=== PATIENT | female | born 1995 | race Caucasian/White ===

== ENCOUNTER 2019-06-02 10:20 | Emergency (ER) | payer OTHER, SELFPAY ==
[2019-06-02 10:39] VITALS: BP 151/87; PULSE 81; RESP 16; TEMP 36.8; O2SAT 99
--- NOTE | 2019-06-02 10:54 | ED.URI ---
HPI - URI/Sore Throat General Chief Complaint: Upper Respiratory Infection Stated Complaint: sore throat Time Seen by Provider: 06/02/19 10:54 Source: patient and RN notes reviewed Mode of arrival: ambulatory Limitations: no limitations History of Present Illness HPI Narrative: This is a 24 years old female presented office for evaluation of sore throat for a couple day. Associated with sinus congestions and ear pressure with low grade fever 99F. She tried one dose of Benadryl yesterday. She woke [facility] [place] [facility] Denies sick contact or potential contact with COVID person. Related Data Allergies Allergy/AdvReac Type Severity Reaction Status Date / Time amoxicillin Allergy Mild Swelling Verified 06/02/19 10:54 of Lip/Tongue/Throat codeine Allergy Mild Swelling Verified 06/02/19 10:54 of Lip/Tongue/Throat latex Allergy Mild Hives Verified 06/02/19 10:54 Penicillins Allergy Mild Swelling Verified 06/02/19 10:54 of Lip/Tongue/Throat pseudoephedrine Allergy Mild Swelling Verified 06/02/19 10:54 of Lip/Tongue/Throat PSEUDOEPHEDRINE HCL Allergy Mild FACIAL Uncoded 04/22/13 19:22 SWELLING BEE STINGS Allergy Swelling Uncoded 06/02/19 10:54 of Lip/Tongue/Throat GUARDASIL Allergy Swelling Uncoded 06/02/19 10:54 of Lip/Tongue/Throat PLASTIC TAPE Allergy Hives Uncoded 06/02/19 10:54 Review of Systems Review of Systems: Narrative: CONSTITUTIONAL: Denies chills or bodyache ENT: Reports stuffy nose, congestion, sore throat, otalgia. CARDIOVASCULAR: Denies chest pain RESPIRATORY: Denies dyspnea, wheezing. Reports cough GASTROINTESTINAL: Denies abdominal pain, nausea, vomiting GENITOURINARY: Denies urinary symptoms SKIN: Denies rash MUSCULOSKELETAL: Denies acute back pain NEUROLOGIC: Denies lightheaded PMFSH Past Medical History Medical History (Updated 06/02/19 @ 11:15 by AMEENA Adams) No significant past medical history Comments At time of signature, I agree with nursing past medical, surgical, social and family history. There is no relevant family history pertinent to the presenting complaint. Exam Narrative: Exam Narrative: GENERAL: This is a well-nourished, well-developed patient, in no apparent distress. EYES: Sclera clear/white. Vision is grossly intact. EARS: External ears normal, auditory canals clear and without drainage, TMs normal without perforation. Hearing grossly intact. NOSE: External nose normal with no obvious nasal discharge, nares without redness, no rhinorrhea. THROAT: Mucous membranes moist, posterior pharynx clear. NECK: Neck supple, non-tender without lymphadenopathy, masses or thyromegaly. CARDIOVASCULAR: Regular rate and rhythm without murmurs, gallops, or rubs. RESPIRATORY: Clear to auscultation. Breath sounds equal bilaterally. No wheezes, rales, or rhonchi. GASTROINTESTINAL: Abdomen soft, non-tender, nondistended. Bowel sounds are active. No hepato-splenomegaly, or palpable masses. No guarding. SKIN: warm, intact with no suspicious lesions or rash, good texture and turgor. NEURO: awake, alert, and oriented to person, place and time. There were no obvious focal neurologic abnormalities. Steady gait [place] Coma Scale Eye Opening: Spontaneous 4 [place] Coma Scale Motor: Obeys Commands 6 [place] Coma Scale Verbal: Oriented 5 Course Vital Signs Vital signs: Vital Signs Temperature 98.2 F 06/02/19 10:39 Pulse Rate 81 06/02/19 10:39 Respiratory Rate 16 06/02/19 10:39 Blood Pressure 151/87 H 06/02/19 10:39 Pulse Oximetry 99 06/02/19 10:39 Temperature 98.2 F 06/02/19 10:39 Pulse Rate 81 06/02/19 10:39 Respiratory Rate 16 06/02/19 10:39 Blood Pressure 151/87 H 06/02/19 10:39 Pulse Oximetry 99 06/02/19 10:39 MDM - URI/Sore Throat MDM Narrative Medical decision making narrative: Discharge instructions reviewed with patient, as well as provided in writing per nursing staff. The ins
== END 2019-06-02 11:07 | disposition home or self-care (01) ==
PROVIDERS: Emergency Provider Nurse Practitioner; PCP Family Medicine
DX: J02.9 Acute pharyngitis, unspecified (principal)
CPT/HCPCS: 87081; 87880; 99213; G0463

== ENCOUNTER 2020-08-08 12:57 | Emergency (ER) | payer OTHER, SELFPAY ==
[2020-08-08 13:38] VITALS: BP 127/88; PULSE 74; RESP 16; TEMP 36; O2SAT 100
--- NOTE | 2020-08-08 13:47 | ED.URI ---
HPI - URI/Sore Throat General Chief Complaint: Upper Respiratory Infection Stated Complaint: SORE THROAT Source: patient and RN notes reviewed Limitations: no limitations History of Present Illness HPI Narrative: The patient, non-smoker/nondrinker cafe or restaurant manager, presents with sore throat. She notes a shorter 2-day history of sore throat without fever, cough, earache, vomiting/diarrhea, rash. Symptoms are mild worse with eating Related Data Home Medications Medication Instructions Recorded Confirmed drospirenone (contraceptive) 08/08/20 [Slynd] hydrochlorothiazide 08/08/20 losartan 08/08/20 Allergies Allergy/AdvReac Type Severity Reaction Status Date / Time amoxicillin Allergy Mild Swelling Verified 06/02/19 10:54 of Lip/Tongue/Throat codeine Allergy Mild Swelling Verified 06/02/19 10:54 of Lip/Tongue/Throat latex Allergy Mild Hives Verified 06/02/19 10:54 Penicillins Allergy Mild Swelling Verified 06/02/19 10:54 of Lip/Tongue/Throat pseudoephedrine Allergy Mild Swelling Verified 06/02/19 10:54 of Lip/Tongue/Throat PSEUDOEPHEDRINE HCL Allergy Mild FACIAL Uncoded 04/22/13 19:22 SWELLING BEE STINGS Allergy Swelling Uncoded 06/02/19 10:54 of Lip/Tongue/Throat GUARDASIL Allergy Swelling Uncoded 06/02/19 10:54 of Lip/Tongue/Throat PLASTIC TAPE Allergy Hives Uncoded 06/02/19 10:54 Review of Systems Review of Systems: Narrative: General/Constitutional: No weight loss,fever Eyes: N0: Redness,discharge Ears/Nose/Throat: No: Epistaxis,ear discharge Respiratory: Denies: Hemoptysis Gastrointestinal: No Vomiting, Bleeding-rectal Skin: No Lumps, eruption Neurologic: No Focal Weakness,Sz Hematologic: Denies: Petechiae/Purpura Psychiatric: No: Suicida ideationl All Other Systems: Reviewed and Negative PMFSH Past Medical History Medical History (Updated 08/08/20 @ 13:49 by Lawrence Gonzalez MD) No significant past medical history Comments At time of signature, agree with nursing past medical, surgical, social and family history. There is no relevant family history pertinent to the presenting complaint Exam Narrative: Exam Narrative: General Appearance: Well appearing, Well nourished EYE: PERRLA, Conjunctiva clear Ears: Auditory canal normal, TM normal Nose: Rhinorrhea, Mucousal erythema Mouth/Throat: MM moist, Uvula midline, Pharyngeal erythema Neck: Supple, No adenopathy Respiratory: No respiratory distress, Breath sounds equal, Clear to auscultation Cardiovascular: RRR, No JVD Musculoskeletal: Non tender, Normal strength Skin: Warm, Dry Neurological: A&O x3, CN II-XII intact Psychiatric: Normal mood, Normal affect Course Vital Signs Vital signs: Vital Signs Temperature 96.8 F L 08/08/20 13:38 Pulse Rate 74 08/08/20 13:38 Respiratory Rate 16 08/08/20 13:38 Blood Pressure 127/88 08/08/20 13:38 Pulse Oximetry 100 08/08/20 13:38 Temperature 96.8 F L 08/08/20 13:38 Pulse Rate 74 08/08/20 13:38 Respiratory Rate 16 08/08/20 13:38 Blood Pressure 127/88 08/08/20 13:38 Pulse Oximetry 100 08/08/20 13:38 Discharge Plan Discharge Clinical Impression: Upper respiratory infection Qualifiers: URI type: unspecified URI Qualified Code(s): J06.9 - Acute upper respiratory infection, unspecified Patient Disposition: Home, Self-Care Condition: Stable Instructions: Pharyngitis (ED) Prescriptions: New azelastine 137 mcg (0.1 %) aerosol,spray 137 mcg NASAL Q12H Qty: 30 RF: 0 azithromycin 250 mg tablet See Rx Instructions .ROUTE .COMPLEX Qty: 6 RF: 0 lidocaine HCl [Lidocaine Viscous] 2 % solution 5 ml MUCOUS MEM QID PRN (Reason: pain) Qty: 100 RF: 0 No Action losartan 25 mg tablet RF: 0 hydrochlorothiazide 12.5 mg tablet RF: 0 Slynd 4 mg (28) tablet RF: 0 Follow-up/Referrals: Tiffani,Kay Valencia MD [Primary Care P
== END 2020-08-08 13:53 | disposition home or self-care (01) ==
PROVIDERS: Emergency Provider Emergency Medicine; PCP Family Medicine
DX: J06.9 Acute upper respiratory infection, unspecified (principal); I10 Essential (primary) hypertension
CPT/HCPCS: 99213; G0463

== ENCOUNTER 2025-01-30 11:59 | Emergency (ER) | payer BC, SELFPAY ==
--- OUTSIDE RECORDS SUMMARY | 2024-07-29 04:32 | XMS_ITS | Continuity of Care Document ---
Author Organization [facility] nters Address [address] [place] [address] Phone Care Team Providers Care Platform Material Handler Manager Name Role Phone Chris Missy BARCENAS Unavailable Unavailable Allergies, Adverse Reactions, Alerts Substance Reaction Status Criticality Penicillins Active No Information latex Active No Information codeine Active No Information POTASSIUM CLAVULANATE Active No Inf ormation AMOXICILLIN TRIHYDRATE Active No In formation Medications Medication Instructions Dosage Effective Dates (start - stop) Status Comments No Drug Therapy Prescribed Procedures Procedure Date OV EST MODERATE PREVENTIVE NEW 18 TO 39 YRS OLD 025 Advance Directives Directive Yes / No Effective Date File Name No Information Encounters Encounter Description Practice Location Reason(s) For Visit Diagnoses Date Provider Providers Copied on Encounter [facility], [address], [place], [place], [id number], [place] tel: [phone] [facility] No Information 5 Chris Missy. [employer], [id number], [place], [place], [id number] , [place]. tel: [phone] OV EST MODERATE [facility], [address], [place], [place], [id number], [place] tel: [phone] [facility] Health Maintenance (chief complaint) Trying to get 5 Chris Missy. [address], [id number], [place], [place], [id number] , [place]. tel: [phone] PREVENTIVE NEW 18 TO 39 YRS OLD [facility], [address], [place], [place], [id number], [place] tel:[phone] [facility] annual exam (chief complaint) Encounter for gynecological examination (general) (routine) without abnormal findingsTrying to get Encounter for screening pap smear for Ca of cervixHistory of miscarriage 5 Jared Fernandez. [address] [place] [address], [id number], [place], [place], [id number] , [place]. tel: [phone] Family History Family Member Type Diagnosis Age At Onset Mother Problem (finding) Asthma Mother Problem (finding) Stroke Maternal grandfather Problem Diabetes mellitus Maternal grandmother Problem heart disease Maternal grandmother Problem Hypertension Maternal grandmother Problem kidney failure Sister Problem (finding) Asthma Maternal grandmother Problem arthritis Maternal grandmother Problem Diabetes mellitus Mother Problem (finding) Arthritis Brother Problem (finding) Asthma Mother Problem (finding) Blindness Maternal grandmother Problem stroke Mother Problem (finding) Stroke Mother Problem (finding) Diabetes mellitus Mother Problem (finding) Arthritis Mother Problem (finding) Hypertension Mother Problem (finding) Renal disease Mother Problem (finding) Cardiovascular disease Payers Payer name Insurance type Covered republican ID Authoriza tion(s) No Information Social History Type Description Quantity Date Captured Comments Sex Female Smoking Status No Information Gender Identity Female Chief Complaint And Reason For Visit No Information Reason For Referral Reason For Referral No Information Plan Of Treatment Date Type Action Status Goal Dental Exam. Due on 025 due Goal HIV Ab. Due on d ue Goal Unhealthy drug use screening . Due on due Goal Hepatitis C screening. Due o n due Goal BMP. Due on due Goal Pap Smear. Due on due Goal PHQ-9. Due on du e Goal Pap/HPV testing. Due on due Goal Hepatitis C screening. Due o n due Goal HIV Ab. Due on d ue Goal Dental Exam. Due on 025 due Goal BMP. Due on due Goal Pap Smear. Due on 5 due Goal Unhealthy drug use screening . Due on due Goal PHQ-9. Due on du e History Of Present Illness Encounter Date Complaint History Of Prese nt Illness Health Maintenance Trying to get (Z78.9).sine 07/2023; had SAB 12/2023, doing well and cycles have returnedd/w pt cycle tracking, OPKs, and encouraged vitamin-partner SA -f/u in 3mo if not will order further testingEncounter for screening pap smear for Ca of cervix (Z12.4).IGP, Aptima HPV, rfx 16/18,45 to be performed.History of miscarriage (Z87.59).12/2023- chemical pregQuit control July 2023had late period was positiveThen bled so likely early miscarriage all: pencillin/amoxi/sudafed/codeineMeds: kandy, PNVPMHX: noSHX: adenoids/tubesFhx: grandma heard dz/kidney dz/dm/stroke, mom had cervical cancerNo breast/ovarian/cacnerSochx: rarely drinksOB hx: chemcical pregnancyGyne hx menses Mar/ no period in April/ wk of May, wk of Junemenses every 50-60days then every 38 dayslast pap in systemlast mmg n/asexually active 3-4x week tracking menses/ovulationTold to take OPKs daily? was very stressfulTracking OPK since ly believe had a positive OPK in Aprilcontraception was on OCPSmenses prior control was regularmenarch 10 OCPS at 19 was getting migraines on estrogen containing pills22 - 26 slyndPartner any kids noHusband getting tests done todayTrying to lose weightstop soda gym membershipTrying to improve diet annual exam Currently pregna nt: no. : 1. spontaneous: 1. The client states using none for control. Last LMP was 02/18/2024. Patient's menses is regular with normal flow with a frequency of every 28 days. Negative for dysmenorrhea and menorrhagia. Negative for: breast discharge, breast lump(s), breast pain and breast self exam.Negative for Hormone replacement therapy. Menopausal symptoms negative for: hot flashes, insomnia, night sweats and vaginal dryness. Client does not take calcium. Client does not take Vitamin D. Client does not take multivitamins. Client does not take Folic acid.The client states Client's exercise frequency is never. The client does not use tobacco. The client has not been exposed to passive smoke. The client has not been exposed to passive vaping. The client does not drink alcohol. Additional information: [facility] 12/2023, currently ttc. Functional Status Date Functional Assessmen t No Information Medications Administered Medication Instructions Dosage Effective Dates (start - stop) Status Comments No Drug Therapy Prescribed Instructions Date Instruction Additional Infor mation No Information Assessments Type Assessment Date No Information Patient Care Teams Name Effective Dates (start - stop) Status Members No Information
[2025-01-30 12:03] VITALS: BP 143/88; PULSE 79; RESP 16; TEMP 36.6; O2SAT 99
--- NOTE | 2025-01-30 12:09 | PC.NURSE ---
Pt. has had htn during , on labetalol for it. Did not take medication this morning.
--- NOTE | 2025-01-30 16:00 | ED_ITS ---
HPI - Nausea/Vomiting/Diarrhea General Chief complaint: Nausea/Vomiting/Diarrhea Stated complaint: morning sickness, 10.5 weeks Time Seen by Provider: 01/30/25 15:45 Source: patient History of Present Illness HPI Narrative: This is a 29-year-old female approximately 10 weeks who presents to the ED for nausea and vomiting. Patient states that she has had some intermittent nausea and vomiting but this morning had an episode of orange emesis prompting her to come to the ED. She has had intermittent ?pinching? sensation to her suprapubic region that she saw her OBGYN for last week and was cleared. She follows with OBGYN and Diana and is visiting family for the week. Denies fevers, chills, chest pain, shortness of breath. Denies lightheadedness, dizziness. Related Data Home Medications ?Medication ?Instructions ?Recorded ?Confirmed ?Last Taken ?Type drospirenone (contraceptive) 4 mg 08/08/20 Unknown H istory (28) tablet (Slynd) hydrochlorothiazide 12.5 mg tablet 08/08/20 Unknown History losartan 25 mg tablet 08/08/20 Unknown History Allergies Allergy/AdvReac Type Severity Reaction Status Date / Time amoxicillin Allergy Mild Swelling Verified 01/30/25 12:01 of Lip/Tongue/Throat codeine Allergy Mild Swelling Verified 01/30/25 12:01 of Lip/Tongue/Throat latex Allergy Mild Hives Verified 01/30/25 12:01 Penicillins Allergy Mild Swelling Verified 01/30/25 12:01 of Lip/Tongue/Throat pseudoephedrine Allergy Mild Swelling Verified 01/30/25 12:01 of Lip/Tongue/Throat PSEUDOEPHEDRINE HCL Allergy Mild FACIAL Uncoded 04/22/13 19:22 SWELLING BEE STINGS Allergy Swelling Uncoded 06/02/19 10:54 of Lip/Tongue/Throat GUARDASIL Allergy Swelling Uncoded 06/02/19 10:54 of Lip/Tongue/Throat PLASTIC TAPE Allergy Hives Uncoded 06/02/19 10:54 Review of Systems 2 Review of Systems: All systems reviewed & are unremarkable except as noted in HPI and below PMFSH Past Medical History Medical History No significant past medical history Exam 2 Narrative: APPEARANCE: No acute distress, nontoxic, resting in bed EYES: EOMI HEENT: Normocephalic, atraumatic, OMM RESPIRATORY: No respiratory distress Clear to auscultation bilaterally with no rhonchi wheezing or rales. CARDIOVASCULAR: Regular rate and rhythm without murmurs rubs or gallops. ABDOMINAL: Soft, nontender, nondistended, no rebound or guarding MUSCULOSKELETAl: Moves all extremities. No clubbing, cyanosis or edema. NEURO: Awake and alert. Following commands, speech normal, no focal deficits SKIN:: Warm, dry. No rashes lesions or abrasions PSYCHIATRIC: Normal affect/mood, Course Vital Signs Vital signs: Vital Signs Temperature 97.9 F 01/30/25 12:03 Pulse Rate 79 01/30/25 12:03 Respiratory Rate 16 01/30/25 12:03 Blood Pressure 143/88 H 01/30/25 12:03 Pulse Oximetry 99 01/30/25 12:03 Oxygen Delivery Room Air 01/30/25 12:03 Temperature 98.2 F 01/30/25 18:15 Pulse Rate 76 01/30/25 18:15 Respiratory Rate 18 01/30/25 18:15 Blood Pressure 125/71 01/30/25 18:15 Pulse Oximetry 100 01/30/25 18:15 Oxygen Delivery Room Air 01/30/25 12:03 [facility] MDM Narrative Medical decision making narrative: 29-year-old female Presenting for nausea, vomiting. On initial evaluation patient was in no acute distress afebrile, hemodynamic stable. Differentials include but are not limited to: Hyperemesis gravidarum, electrolyte abnormality, gastroenteritis, gastritis Notable exam findings: Abdomen soft and nontender, mucus membranes pink and moist. I personally reviewed the patient's lab result. Notable lab findings: Mild leukocytosis at 10.7, CMP without significant abnormalities. UA likely consistent with some dehydration and possible asymptomatic bacteriuria. COVID/flu/RSV negative. Patient was given 1 L NS bolus. She was given cephalexin for the UTI. She was given a prescription for cephalexin. She was advised to take her Phenergan at home as prescribed. She was advised follow-up with her OBGYN next week for re- evaluation. Patient was agreeable to this plan. Given strict return precautions. Differential Diagnosis Differential Diagnosis: Hyperemesis gravidarum, electrolyte abnormality, gastroenteritis, gastritis Lab Data 01/30/25 16:49 01/30/25 16:49 Labs: Lab Results 01/30/25 01/30/25 01/30/25 Range/Units 16:13 16:44 16:49 WBC 10.7 H (4.5-10.0) K/mm3 RBC 4.67 (4.2-5.4) M/mm3 Hgb 13.6 (12.0-15.0) g/dL Hct 40.4 (37.0-47.0) % MCV 86.5 (80-100) fl MCH 29.1 (26-34) pg MCHC 33.7 (32-36) g/dl RDW 12.5 (11.5-14.5) % Plt Count 293 (150-375) k/mm3 MPV 10.1 (7.4-10.4) fl Immature Gran % (Auto) 0.4 (0-0.5) % Neut % (Auto) 69.4 (45.5-73.1) % Lymph % (Auto) 22.3 (18.3-44.2) % [place] % (Auto) 6.1 (2.6-8.5) % Eos % (Auto) 1.3 (0-4.4) % Baso % (Auto) 0.5 (0.2-1.2) % Lymph # (Auto) 2.40 (0.9-3.2) K/mm3 [place] # (Auto) 0.7 H (0.1-0.6) K/mm3 Eos # (Auto) 0.1 (0-0.3) K/mm3 Baso # (Auto) 0.1 (0.0-0.1) K/mm3 Abs Immat Gran (auto) 0.04 H (0.00-0.031) K/mm3 Absolute Neuts (auto) 7.5 H (1.3-6.7) K/mm3 Absolute Nucleated RBC 0.000 (0.0-0.012) K/mm3 Nucleated RBC % 0.0 (0.0-0.2) % Sodium 135 L (137-145) mmol/L Potassium 3.6 (3.4-5.0) mmol/L Chloride 104 (98-107) mmol/L Carbon Dioxide 23 (22-30) mmol/L Anion Gap 8 (4-12) mmol/L BUN 5 L (7-17) mg/dL Creatinine 0.59 L (0.7-1.0) mg/dL Estim Creat Clear Calc 141 ml/min Estimated GFR > 60 (59 - ) Glucose 83 (65-110) mg/dL Calcium 9.3 (8.4-10.2) mg/dL Total Bilirubin 0.5 (0.2-1.3) mg/dL AST 23 (14-36) U/L ALT 23 (6-35) U/L Alkaline Phosphatase 86 (38-126) U/L Total Protein 7.6 (6.3-8.2) g/dL Albumin 4.1 (3.5-5.1) g/dL Urine Color Dark yellow (Yellow) Urine Appearance Cloudy H (Clear) Urine pH 6.0 (5.0-9.0) Ur Specific [place] 1.025 (1.001-1.035) Urine Protein Trace (Negative) mg/dL Urine Glucose (UA) Negative (Negative) mg/dL Urine Ketones 1+ H (Negative) mg/dL Ur Blood (Man) Negative (Negative) Urine Nitrate Negative (Negative) Urine Bilirubin Negative (Negative) Urine Urobilinogen 0.2 (<2.0) mg/dL Add Ur Microanalysis Reviewed Leukocyte Esterase Rfl 1+ H (Negative) ANNAMARIA/UL Urine RBC 11-20 H (0-2) /hpf Urine WBC 21-50 H (0-3) /hpf Ur Squamous Epith Cells Few (Few) /hpf Urine Bacteria Rare /hpf Urine Casts 11-20 Influenza A (RT-PCR) Negative (Negative) Influenza B (RT-PCR) Negative (Negative) RSV (RT-PCR) Negative (Negative) SARS-CoV-2 RNA (RT-PCR) Negative (Negative) Discharge Plan Discharge Clinical Impression: Nausea and vomiting during , Asymptomatic bacteriuria Patient Disposition: Home Condition: Stable Instructions: Antibiotic Form, Nausea and Vomiting in (ED) Additional Instructions: Take your Phenergan as previously prescribed. Take Keflex as prescribed for the UTI. Follow-up with your Telecommunications Technician in the next week for re-evaluation. Return to the ED for any new worsening symptoms. Patient Language: Pashto Prescriptions: New cephalexin 500 mg capsule 500 mg PO Q12H Qty: 9 0RF No Action losartan 25 mg tablet hydrochlorothiazide 12.5 mg tablet Slynd 4 mg (28) tablet azelastine 137 mcg (0.1 %) aerosol,spray 137 mcg NASAL Q12H Qty: 30 0RF Rx Instructions: administer into each nostril azithromycin 250 mg tablet See Rx Instructions .ROUTE .COMPLEX Qty: 6 0RF Rx Instructions: take 500 mg today (day 1), then 250 mg for 4 days (days 2-5) lidocaine HCl [Lidocaine Viscous] 2 % solution 5 ml MUCOUS MEM QID PRN (Reason: pain) Qty: 100 0RF Rx Instructions: Gargle and spit Follow-up/Referrals: PHYSICIAN NOT ON STAFF,NONSTAFF [Primary Care Provider]
--- OUTSIDE RECORDS SUMMARY | 2025-01-30 16:28 | XMS_ITS | Encounter Summary ---
Author Organization [facility] Address [address] [place] [address] Phone Care Team Providers Care Head Track Coach Name Role Phone Gail García NP Primary Care Provider [phone] Encounter Details Date Type Department Care Team ([facility] st Contact Info) Description 01/23/2025 Results Follow-Up [facility] [address] [place] [address] Marion Tomas NP [address] [place], [place] [phone] VAGINAL PANEL BY PCR Social History Smoking Status as of 01/21/2025 Tobacco Use Types Packs/Day Years Used Date Smoking Tobacco: Never Smokeless Tobacco: Never Tobacco Cessation:Counseling Given: Not Answered Alcohol Use as of 01/21/2025 Alcohol Use Standard Drinks/Week Comments Yes 0 (1 standard drink = 0.6 oz pur e alcohol) rarely PHQ-2 Answer Date Recorded Depression Risk (PHQ2 Score) Score 0-2 = Not likely to be at risk for depression, Score 3-6 = At risk for depression 0 08/05/2024 Exercise Vital Sign Answer Date Recorde d On average, how many days pe r week do you engage in moderate to strenuous exercise (like a brisk walk)? 3 days Minutes of Exercise per Session Not on file 08/05/2024 PHQ-9 Answer Date Recorded PHQ-9 Total Score > 1-4 Mini mal, 5-9 Mild, 10-14 Moderate, 15-19 Mod-Severe, 20-27 Severe 8 08/05/2024 AUDIT-C Answer Date Recorded Q1: How often do you have a drink containing alc ohol? Never 12/26/2024 Average Number of Drinks Not on file 025 Frequency of Binge Drinking Not on file 12/07 Comments Yes Sex and Gender Information Value Date Recorded Sex Assigned at Not on file Legal Sex Female 2:31 AM EDT Gender Identity Not on file Sexual Orientation Not on file documented as of this encounter Progress Notes * Gail Maria MA - 01/26/2025 7:23 AM CST Lenora sent mychart documented in this encounter Plan of Treatment Upcoming Encounters Date Type Department Care Team (Late st Contact Info) Description 02/18/2025 10:00 AM FIRE INVESTIGATOR Initial [facility] Gyne[facility] [address] [place] [address] Marion Tomas NP [address] [place] [address] 04/10/2025 12:30 PM FIRE INVESTIGATOR Ancillary Procedure [facility] [place] [address] [place] [phone] 04/10/2025 12:30 PM FIRE INVESTIGATOR Office Visit [facility] [place] [address] [place] [address] [place] [address] [place] [address] 04/29/2025 2:00 PM CDT [facility] [address] [facility] [place] [address] Lpn Or Medical Assistant: Marti Vasques Jennifer, NP [address] [facility] [place] [address] documented as of this encounter Visit Diagnoses Not on filedocumented in this encounter Additional Health Concerns Assessment Noted Time PHQ-9 Depression Total Score: 8 08/06/19 25 12:23 PM EDT documented as of this encounter Care Teams Head Track Coach Relationship Specialty Start Date End Date Gail García NP [address] [facility] [place], [place] [phone] PCP - General Family Medicine 07/29/24 documented as of this encounter
--- OUTSIDE RECORDS SUMMARY | 2025-01-30 16:28 | XMS_ITS | Encounter Summary ---
Author Organization [facility] Address [address] [place] [address] Phone Care Team Providers Care Food Safety Auditor Name Role Phone Gail García NP Primary Care Provider [phone] Encounter Details Date Type Department Care Team (Late st Contact Info) Description 01/15/2025 Results Follow-Up [facility] Obstetrics & Gynecology [address] [place] [address] Marion Tomas NP [address] [facility] [address] [place] [address] < 14 WEEKS AND TRANSVAGINAL Social History Smoking Status as of 12/26/2024 Tobacco Use Types Packs/Day Years Used Date Smoking Tobacco: Never Smokeless Tobacco: Never Tobacco Cessation:Counseling Given: Not Answered Alcohol Use as of 12/26/2024 Alcohol Use Standard Drinks/Week Comments Yes 0 [...] on file documented as of this encounter Plan of Treatment Upcoming Encounters Date Type Department Care Team (Late st Contact Info) Description 02/18/2025 10:00 AM COLOR TECHNICIAN Initial [facility] Ob[facility]etrics & Gynecology [address] [place] [phone] Marion Tomas NP [address] [place] [address] 04/10/2025 12:30 PM COLOR TECHNICIAN Ancillary Procedure [facility] [place] [address] [place] [address] 04/10/2025 12:30 PM COLOR TECHNICIAN Office Visit [facility] Medicine [facility] [place] [address] [place] [address] [place] [address] [address] [place] [address] 04/29/2025 2:00 PM CDT Office Visit [facility] Family Medicine [address] [place] [address] [address] [employer] Principal: Marti Vasques Jennifer, NP [address] [place] [address] documented as of this encounter Visit Diagnoses Not on filedocumented in this encounter Additional Health Concerns Assessment Noted Time PHQ-9 Depression Total Score: 8 08/06/19 12:23 PM EDT documented as of this encounter Care Teams Food Safety Auditor Relationship Specialty Start Date End Date Gail García NP [address] [place] [address] PCP - General Family Medicine 07/29/24 documented as of this encounter
--- OUTSIDE RECORDS SUMMARY | 2025-01-30 16:28 | XMS_ITS | Clinical Summary ---
Author Organization [facility] Address [address] [place] [address] Care Team Providers Care Front End Manager Name Role Phone Gail García NP Primary Care Provider [phone] Allergies Active Allergy Reactions Criticality Noted Date Comments Adhesive Tape-Silicones Hives,Swelling High 05/18/19 Amoxicillin Hives,Swelling High 05/18/2023 Codeine Hives,Swelling High 05/18/2023 Latex Hives,Swelling High 05/18/2023 Penicillin Hives,Swelling High 05/18/2023 Sudafed Cough Hives,Swelling High 05/18/2023 Medications PNV no.95/ferrous fum/folic ac ( PO) Take by mouth Ac tive cholecalcifero l, vitamin D3, (VITAMIN D3 PO) Take by mouth Active Miscellaneous Medical Supply misc Pt needs blood pressure monitor for self monitoring for HTN 1 Each 5 Active metFORMIN (GLUCOPHAGE-XR ) 500 mg XR tablet Take 1 (one) Tablet by mouth daily 90 Tablet 1 5 Active Additional Information Patient not taking.Reported on 01/21/2025 Progesterone Micronized [address] 200 mg vaginally nightly for 60 doses 60 Each 5 02/27/19 26 Active Additional Information Patient not taking.Reported on 01/21/2025 progesterone micronized (PROMETRIUM) 100 mg capsule Take 2 (two) Capsules by mouth every evening Please insert 2(two) capsules into the vagina every evening 60 Capsule 5 Active Additional Information Patient not taking.Reported on 01/21/2025 Doxylamine Succinate (UNISOM, DOXYLAMINE,) 25 mg tab Take 1 (one) Tablet by mouth daily 30 Tablet 1 5 Active promethazine (PHENERGAN) 12.5 mg tablet Take 1 (one) Tablet by mouth every 6 (six) hours as needed for Nausea 30 Tablet 5 Active pyridoxine, vitamin B6, (VITAMIN B-6) 25 mg tab Take 1 tablet by mouth three times daily 90 Tablet 1 5 Active labetalol (NORMODYNE) 100 mg tablet Take 1 (one) Tablet by mouth 2 (two) times daily 60 Tablet 11 5 Active labetaloL (NORMODYNE) 100 mg tablet Take 1 (one) Tablet by mouth 2 (two) times daily 60 Tablet 11 5 01/22/20 25 Discontin ued(Reord er) Active Problems Comments Yes No known active problems Encounters Date Type Department Care Team Description 01/23/2025 Results Follow-Up [facility] Physician [place] [address] [address] Marion Tomas NP VAGINAL PANEL BY PCR 01/21/2025 11:30 AM MACHINE MAINTENANCE MECHANIC Office Visit [facility] Physician [facility] Obstetrics & Gynecology [address] [place] [address] [place] [address] Marion Tomas NP Encounter for confirmation of test result with physical examination (Primary Dx); Vaginal discharge; Nausea and vomiting during ; Chronic hypertension 01/21/2025 Travel 01/16/2025 Telephone [facility] Marion Tomas NP Scheduling 01/15/2025 9:46 AM MACHINE MAINTENANCE MECHANIC - 01/15/2025 11:59 PM MACHINE MAINTENANCE MECHANIC Hospital Encounter [facility] Ultrasound [address] [place] [address] Marion Tomas NP Amenorrhea Discharge Disposition: Home or Self Care 01/15/2025 Results Follow-Up [facility] Obstetrics & Gynecology [address] [place] [address] Marion Tomas NP US < 14 WEEKS AND TRANSVAGINAL 12/29/2024 Orders Only [facility] Obstetrics & Gynecology [address] [place] [address] Marion Tomas NP 12/26/2024 2:05 PM MACHINE MAINTENANCE MECHANIC - 12/26/2024 11:59 PM MACHINE MAINTENANCE MECHANIC Hospital Encounter [facility] [address] [place] [address] Marion Tomas NP Chronic hypertension; Amenorrhea Discharge Disposition: Home or Self Care 12/26/2024 11:30 AM MACHINE MAINTENANCE MECHANIC Office Visit [facility] [address] [place] [address] Marion Tomas NP Amenorrhea (Primary Dx); Chronic hypertension 12/26/2024 Results Follow-Up [facility] [address] [place] [address] Marion Tomas NP Protein Creatinine Ratio Urine Random, Human chorionic gonadotropin (hCG), quantitative, PROGESTERONE, CT,NG BY PCR 12/23/2024 2:58 PM MACHINE MAINTENANCE MECHANIC - 12/23/2024 5:28 PM MACHINE MAINTENANCE MECHANIC Emergency [facility] Emergency Dept [address] [place] [address] Bereket Spencer MD Donahue, Charity, CRYPTOLOGIC TECHNICIAN TECHNICAL Hypertension in (Primary Dx); UTI in Discharge Disposition: Home or Self Care 12/23/2024 Telephone [facility] Family Medicine [address] [facility] [address] Bottling Attendant: Marti Vasques Jennifer, NP Advice Only from Last 3 Months Family History Medical History Relation Name Comments Diabetes Maternal grandmother Hypertension Maternal grandmother Kidney failure Maternal grandmother No Known Problems Natural father Cervical cancer Natural mother Hypertension Natural mother Psychosis Natural sister borderline Relation Name Status Comments Maternal grandmother Natural father Natural mother Natural sister Social History Tobacco Use Types Packs/Day Years Used Date Smoking Tobacco: Never Smokeless Tobacco: Never Tobacco Cessation:Counseling Given: Not Answered Alcohol Use Standard Drinks/Week Comments Yes 0 [...] on file Sexual Orientation Not on file Last Filed Vital Signs Vital Sign Reading Time Taken Comments Blood Pressure 122/80 01/21/2025 11:40 AM MACHINE MAINTENANCE MECHANIC Pulse 87 12/23/2024 3:02 PM MACHINE MAINTENANCE MECHANIC Temperature 36.8 C (98.2 F) 12/23/2024 3:02 PM MACHINE MAINTENANCE MECHANIC Respiratory Rate 18 12/23/2024 3:02 PM MACHINE MAINTENANCE MECHANIC Oxygen Saturation 100% 12/23/2024 3:02 PM MACHINE MAINTENANCE MECHANIC Inhaled Oxygen Concentration - - Weight 106.9 kg (235 lb 11.2 oz) 2024 11:40 AM MACHINE MAINTENANCE MECHANIC Height 160 cm (5' 3) 01/21/2025 11:40 AM MACHINE MAINTENANCE MECHANIC Body Mass Index 41.75 01/21/2025 11:40 AM MACHINE MAINTENANCE MECHANIC Plan of Treatment Upcoming Encounters Date Type Department Care Team (Late st Contact Info) Description 02/18/2025 10:00 AM MACHINE MAINTENANCE MECHANIC Initial [facility] Obstetrics & Gynecology [address] [place] [address] Marion Tomas, FABY [address] [place] [address] 04/10/2025 12:30 PM MACHINE MAINTENANCE MECHANIC Ancillary Procedure [facility] Physician [facility] Maternal Medicine & Genetics [place] [address] [place] [address] 04/10/2025 12:30 PM MACHINE MAINTENANCE MECHANIC Office Visit [facility] Maternal Medicine & Genetics [place] [address] [place] [address] [place] [address] [address] [place] [address] 04/29/2025 2:00 PM CDT Office Visit [facility] Family Medicine [address] [place] [address] Bottling Attendant: Marti Vasques Jennifer, NP [address] [place] [address] Health Maintenance Due Date Last Done Comments HIV Screening 1997 Lab-Vitamin B12 1998 Hepatitis B Vaccination (1 o f 3 - 19+ 3-dose series) 2016 Cervical Cancer Screening 2018 Cotest (HPV/Pap) 2018 HPV 2018 Pap 2018 Tdap/Td Vaccination (1 - Tdap) 2018 HPV Vaccination (1 of 3 - 3- dose SCDM series) 2024 Lab-Lipid Screening 08/05/2024 Influenza Vaccination (#1) 2024 COVID-19 Vaccine (1 - 2024-2 6 season) 2024 Well Visit 02/27/2025 02/28/2024, 02/28/2024 BMI followup 08/05/2025 08/05/2024 Depression Screening 08/05/2025 08/05/2024 Lab-Creatinine 12/23/2025 12/23/2024, 01/05, 05/18/2023 Lab-Diabetes Screening (Gluc ose or HgA1c) 12/23/2025 12/23/2024, 01/19/2024, 05/18/2023 Lab-K (Potassium) 12/23/2025 12/23/2024, , 05/18/2023 Procedures Procedure Name Priority Date/Time Associated Diagnosis Comments VAGINAL PANEL BY PCR Routine 01/21/2025 1:58 PM MACHINE MAINTENANCE MECHANIC Vaginal discharge US < 14 WEEKS AND TRANSVAGINAL Routine 01/15/2025 10:55 AM MACHINE MAINTENANCE MECHANIC Amenorrhea PROGESTERONE Routine 12/26/2024 2:27 PM MACHINE MAINTENANCE MECHANIC Amenorrhea HCG QUANTITATIVE Routine 12/26/2024 2:27 PM MACHINE MAINTENANCE MECHANIC Amenorrhea PROTEIN CREATININE RATIO URINE RANDOM Routine 12/26/2024 2:27 PM MACHINE MAINTENANCE MECHANIC Chronic hypertension CT,NG BY PCR Routine 12/26/2024 Amenorrhea URINALYSIS WITH REFLEX MICROSCOPIC(NO REFLEX CULTURE) STAT 12/23/2024 4:02 PM MACHINE MAINTENANCE MECHANIC HC TROPONIN MALAIKA 411 STAT 12/23/2024 3:41 PM MACHINE MAINTENANCE MECHANIC COMPLETE BLOOD COUNT WITH AUTO DIFFERENTIAL STAT 12/23/2024 3:41 PM MACHINE MAINTENANCE MECHANIC HCG QUANTITATIVE STAT 12/23/2024 3:41 PM MACHINE MAINTENANCE MECHANIC MAGNESIUM STAT 12/23/2024 3:41 PM MACHINE MAINTENANCE MECHANIC COMPREHENSIVE METABOLIC PANEL STAT 12/23/2024 3:41 PM MACHINE MAINTENANCE MECHANIC COMPLETE BLOOD COUNT WITH DIFFERENTIAL STAT 12/23/2024 3:41 PM MACHINE MAINTENANCE MECHANIC from Last 3 Months Results * VAGINAL PANEL BY PCR (01/21/2025 1:58 PM MACHINE MAINTENANCE MECHANIC) BACTERIAL VAGINOSIS NOT DETECTED 01/23/2025 1:52 AM MACHINE MAINTENANCE MECHANIC [facility] Comment: Detection of Bacterial Vaginosis is based on a quantitative algorithm of the following bacteria; Lactobacillus species (L. crispatus and L. jensenii), Gardnerella vaginalis, Atopobium vaginae, Bacterial vaginosis associated bacteria-2 (BVAB-2), and Megasphaera-1. KENNY GROUP NOT DETECTED 01/23/2025 1:52 AM MACHINE MAINTENANCE MECHANIC [facility] Comment: Result includes detection of C. albicans, and/or C. tropicalis, and/or C. parapsilosis, and/or C. dubliniensis. KENNY GLABRATA NOT DETECTED 01/23/2025 1:52 AM MACHINE MAINTENANCE MECHANIC [facility] KENNY KRUSEI NOT DETECTED 01/23/2025 1:52 AM MACHINE MAINTENANCE MECHANIC [facility] TRICHOMONAS VAGINALIS NOT DETECTED 01/23/2025 1:52 AM MACHINE MAINTENANCE MECHANIC [facility] BKR-Swab VAGINAL STRUCTURE / Unknown 01/21/2025 1:58 PM MACHINE MAINTENANCE MECHANIC 01/22/2025 3:34 PM MACHINE MAINTENANCE MECHANIC Narrative [facility] - 01/23/2025 1:52 AM MACHINE MAINTENANCE MECHANIC Marion Tomas NP MICROBIOLOGY - GENERAL ORDERAB LES Final Result Performing Organization Address City/State/[facility] Co de Phone Number [facility] Associated Content [address] [phone] * US < 14 WEEKS AND TRANSVAGINAL (01/15/2025 10:55 AM MACHINE MAINTENANCE MECHANIC) Anatomical Region Laterality Modality Abdomen N/A Ultrasound 01/15/2025 9:46 AM MACHINE MAINTENANCE MECHANIC Impressions 01/15/2025 11:20 AM MACHINE MAINTENANCE MECHANIC Single live intrauterine gestation, size equal dates. Small subchorionic hematoma. Electronically signed by: Fede Yoo MD 01/15/2025 11:20 AM MACHINE MAINTENANCE MECHANIC If the referring physician has any questions about this report, please call . d: Jan 15 2025 11:20A f: Jan 15 2025 11:20A Narrative 01/15/2025 11:20 AM MACHINE MAINTENANCE MECHANIC CLINICAL HISTORY: US LESS THAN 14 WEEKS WITH TRANSVAGINAL N91.2- Amenorrhea COMPARISON: None available. TECHNIQUE: transabdominal and endovaginal sonography was performed FINDINGS: An intrauterine gestational sac is present. An embryo is identified .Cardiac activity is visualized and documented at a normal rate (160 beats per minute). There is a 1.6 x 0.8 x 0.5 cm subchorionic fluid collection. Based on a crown rump length averaging 16 mm, the estimated gestational age is 8 weeks and 1 day. Findings are compatible with gestational age by dates of 8 weeks and 3 days, based on LMP dated 11/17/2024. Estimated date of delivery by ultrasound is 08/26/2025. The right ovary measures 3.7 cm. The left ovary measures 3.8 cm. Probable 2 cm corpus luteal cyst There is no pelvic free fluid. Procedure Note Horacio Bermeo MD - 01/15/2025 CLINICAL HISTORY: US LESS THAN 14 WEEKS WITH [id number]- Amenorrhea COMPARISON: None available. TECHNIQUE: transabdominal and endovaginal sonography was performed FINDINGS: An intrauterine gestational sac is present. An embryo is identified.Cardiac activity is visualized and documented at a normal rate (160 beatsper minute). There is a 1.6 x 0.8 x 0.5 cm subchorionic fluidcollection. Based on a crown rump length averaging 16 mm, the estimated gestationalage is 8 weeks and 1 day. Findings are compatible with gestational age bydates of 8 weeks and 3 days, based on LMP dated 11/17/2024. Estimated date of delivery by ultrasound is 08/26/2025. The right ovary measures 3.7 cm. The left ovary measures 3.8 cm. Probable 2 cm corpus luteal cyst There is no pelvic free fluid. IMPRESSION: Single live intrauterine gestation, size equal dates. Small subchorionic hematoma. Electronically signed by: Fede Yoo MD 01/15/2025 11:20 AM CST If the referring physician has any questions about this report, pleasecall . d: Jan 15 2025 11:20A f: Jan 15 2025 11:20A us Marion Tomas CRYPTOLOGIC TECHNICIAN TECHNICAL IMG US ORDERABLES Final Result * Human chorionic gonadotropin (hCG), quantitative (12/26/2024 2:27 PM MACHINE MAINTENANCE MECHANIC) Only the most recent of2 resultswithin the time period is included. HCG, QUANT 4,478.5 mIU/mL 12/26/2024 3:54 PM MACHINE MAINTENANCE MECHANIC [facility] BKR-Blood Venipuncture / Unknown 12/26/2024 2:27 PM MACHINE MAINTENANCE MECHANIC 12/26/2024 2:59 PM MACHINE MAINTENANCE MECHANIC Narrative [facility][1] LAB - 12/26/2024 3:54 PM MACHINE MAINTENANCE MECHANIC Interpretation hcg Range (mIU/mL) Negative < 5 Indeterminate 5 - 25 Positive > 25 The method used to obtain results is standardized against the WHO 5th International Standard for Chorionic Gonadotropin. Estimation of Gestational Age Weeks from LMP BhCG level (mIU/mL) 3 Weeks 5 - 50 4 Weeks 5 - 426 5 Weeks 18 - 7340 6 Weeks 1080 - 98133 7-8 Weeks 7650 - 566971 9-12 Weeks 26709 - 878713 13-16 Weeks 38524 - 684261 17-24 Weeks 4060 - 839569 25-40 Weeks 3640 - 737574 The ranges in the table above have not been validated by the testing lab or assay food chemist, but are provided solely as an estimate of gestational age. BhCG levels can vary widely between women; therefore results should be used in conjunction with other methods (i.e. ultrasound, LMP) for determining gestational age. For assessment of gestational viability, serial testing is advised rather than a single measurement. Reference: http://americanpregnancy.org/while-/hcg-levels Marion Tomas NP LAB BLOOD ORDERABLES Final Res ult [facility] [address] [facility], [address] [phone] * PROGESTERONE (12/26/2024 2:27 PM MACHINE MAINTENANCE MECHANIC) Pathologist [facility] [place] PROGESTERONE 11.3 ng/mL 12/26/2024 7:46 PM MACHINE MAINTENANCE MECHANIC [place] Comment: REFERENCE RANGES Males: 0.14- 2.06 Females Mid Follicular: 0.31 - 1.52 Mid-Luteal: 5.16 - 18.56 Postmenopausal: <0.08 - 0.78 1st Tri: 4.73 - 50.74 2nd Tri: 19.41 - 45.30 BKR-Blood Venipuncture / Unknown 12/26/2024 2:27 PM MACHINE MAINTENANCE MECHANIC 12/26/2024 2:59 PM MACHINE MAINTENANCE MECHANIC Marion Tomas LAB BLOOD ORDERABLES Final Res ult Performing Organization Address City/[facility]/ZIP Co de Phone Number [facility] [address] [phone] * Protein Creatinine Ratio Urine Random (12/26/2024 2:27 PM MACHINE MAINTENANCE MECHANIC) PROTEIN, URINE 6.2 mg/dL 12/26/2024 3:15 PM MACHINE MAINTENANCE MECHANIC [facility][1] LAB CREATININE-UR 97.2 8.0 - 198.0 mg/dL 12/26/2024 3:15 PM MACHINE MAINTENANCE MECHANIC [facility][1] LAB PROTEIN CREATININE RATIO 0.1 12/26/2024 3:15 PM MACHINE MAINTENANCE MECHANIC [facility][1] LAB BKR-Urine Non-blood Collection / Unknown 12/26/2024 2:27 PM MACHINE MAINTENANCE MECHANIC 12/26/2024 2:59 PM MACHINE MAINTENANCE MECHANIC Marion Tomas CRYPTOLOGIC TECHNICIAN TECHNICAL URINE ORDERABLES Final Result Performing Organization Address City/[facility] Co de Phone Number [facility][1] [facility] [address] [phone] * CT,NG BY PCR (12/26/2024) SOURCE: VAGINAL 12/26/2024 11:43 PM MACHINE MAINTENANCE MECHANIC [facility] SOURCE COMMENT see below 12/26/2024 11:43 PM MACHINE MAINTENANCE MECHANIC [facility] Comment: The Alinity m STI Assay has not been validated for use with vaginal swab specimens collected by patients at home. The patient-collected vaginal swab specimen application is limited to shaina care facilities where support/counseling is available to explain the procedures and precautions. C. TRACHOMATIS BY PCR Not Detected Not Detected 12/27/2024 7:03 AM MACHINE MAINTENANCE MECHANIC [facility] Associated Content N. GONORRHOEAE BY PCR Not Detected Not Detected 12/27/2024 7:03 AM MACHINE MAINTENANCE MECHANIC [facility] Associated Content COMMENT 1 see below 12/27/2024 7:03 AM MACHINE MAINTENANCE MECHANIC [facility] Associated Content Comment: Testing performed using the [place] m STI AMP Kit (Intellinote). False negative results of Not Detected can be observed in the presence of the following interfering substances: mucus, seminal fluid, gamma globulin, glucose, feces, and certain hemorrhoidal creams or toothpaste brands. Recollection is suggested if clinically indicated. A result of Not Detected does not preclude the possibility of infection and results should be interpreted in conjunction with other clinical and laboratory findings. The presence of CT and NG nucleic acids does not establish the causative agent for salpingitis or PID. The absence of nucleic acids for these targets does not exclude related infection as a cause of ascending infection. This assay has not been evaluated with patients who are currently being treated with antimicrobial agents active against CT, NG, TV, and MG and should not be used to determine therapeutic success or failure as nucleic acids may persist after appropriate antimicrobial therapy. BKR-Swab VAGINAL STRUCTURE / Unknown 12/26/2024 12/27/2024 1:58 AM MACHINE MAINTENANCE MECHANIC Marion Tomas NP MICROBIOLOGY - GENERAL ORDERAB LES Final Result Performing Organization Address City/State/[facility] Co de Phone Number TYGARCÍA [facility] [address] [phone] * (ABNORMAL) Urinalysis with Reflex Microscopy (12/23/2024 4:02 PM MACHINE MAINTENANCE MECHANIC) COLOR URINE Yellow Light-Yello w, Yellow 12/23/2024 4:24 PM MACHINE MAINTENANCE MECHANIC [place] [facility] LAB APPEARANCE URINE Turbid(A) Clear 12/24/19 25 4:24 PM MACHINE MAINTENANCE MECHANIC [facility][1] LAB SPECIFIC GRAVITY, URINE 1.035(H) 1.005 - 1.030 12/23/2024 4:24 PM MACHINE MAINTENANCE MECHANIC [facility][1] LAB GLUCOSE URINE Negative Negative 12/23/2024 4:24 PM MACHINE MAINTENANCE MECHANIC [facility][1] LAB KETONES URINE Trace(A) Negative 12/23/2024 4:24 PM MACHINE MAINTENANCE MECHANIC [facility][1] LAB BILIRUBIN URINE Negative Negative 4:24 PM MACHINE MAINTENANCE MECHANIC [facility][1] LAB BLOOD URINE Negative Negative 12/23/2024 4:24 PM MACHINE MAINTENANCE MECHANIC [facility][1] LAB UROBILINOGEN Normal Normal 12/23/2024 4:24 PM MACHINE MAINTENANCE MECHANIC [facility][1] LAB NITRITE URINE Negative Negative 12/23/2024 4:24 PM MACHINE MAINTENANCE MECHANIC [facility][1] LAB LEUKOCYTE NIURKA. 75(A) Negative Leukocytes/ uL 12/23/2024 4:24 PM MACHINE MAINTENANCE MECHANIC [facility][1] LAB WBC, URINE 21-50(A) 0 - 5 /hpf 12/23/2024 4:24 PM MACHINE MAINTENANCE MECHANIC [facility][1] LAB RBC, URINE 0-2 0 - 2 /hpf 12/23/2024 4:24 PM MACHINE MAINTENANCE MECHANIC [facility][1] LAB EPITHELIAL CELLS, URINE Moderate(A) None Seen /lpf 12/23/2024 4:24 PM MACHINE MAINTENANCE MECHANIC [facility][1] LAB BACTERIA, URINE Occasional( A) None Seen 12/23/2024 4:24 PM MACHINE MAINTENANCE MECHANIC [facility][1] LAB MUCUS, URINE Many(A) None Seen 12/23/2024 4:24 PM MACHINE MAINTENANCE MECHANIC [facility][1] LAB PROTEIN URINE 1+(A) Negative 12/23/2024 4:24 PM MACHINE MAINTENANCE MECHANIC [facility][1] LAB PH, URINE 6.0 5 - 8 12/23/2024 4:24 PM MACHINE MAINTENANCE MECHANIC [facility][1] LAB BKR-Urine URINE SPECIMEN OBTAINED BY CLEAN CATCH PROCEDURE / Unknown Non-blood Collection / Unknown 12/23/2024 4:02 PM MACHINE MAINTENANCE MECHANIC 12/23/2024 4:19 PM MACHINE MAINTENANCE MECHANIC us Gardenia Joel NP URINE ORDERABLES Final Result [facility][1] LAB [address] [place], [place] [address] [phone] * Troponin I, High Sensitivity (12/23/2024 3:41 PM MACHINE MAINTENANCE MECHANIC) TROPONIN I, HIGH SENSITIVITY <2 0 - 12 ng/L 12/23/2024 4:35 PM [facility] BKR-Blood Venipuncture / Unknown 12/23/2024 3:41 PM MACHINE MAINTENANCE MECHANIC 12/23/2024 3:48 PM MACHINE MAINTENANCE MECHANIC Narrative [facility][1] LAB - 12/23/2024 4:35 PM MACHINE MAINTENANCE MECHANIC High Sensitivity troponin result is at or below the 99th percentile upper reference limit. Myocardial injury is unlikely. Recommend additional and serial testing to exclude evolving myocardial injury or acute coronary syndrome, as clinically indicated. us Gardenia Joel NP LAB BLOOD ORDERABLES Final Re sult [facility] [address] [facility] [place] [address], [facility] [phone] * COMPLETE BLOOD COUNT WITH AUTO DIFFERENTIAL (12/23/2024 3:41 PM MACHINE MAINTENANCE MECHANIC) WBC 8.21 4.00 - 11.00 10*3/uL 12/23/2024 4:13 PM [facility] LAB RBC 4.81 3.63 - 5.04 10*6/uL 12/23/2024 4:13 PM [facility] HGB 13.90 12.00 - 15.30 g/dL 12/23/2024 4:13 PM [facility] HCT 40.7 34.7 - 45.1 % 12/23/2024 4:13 PM [facility] LAB MCV 84.5 80.0 - 100.0 fL 12/23/2024 4:13 PM [facility] LAB MCH 28.9 26.0 - 34.0 pg 12/23/2024 4:13 PM [facility] LAB MCHC 34.2 32.5 - 35.8 g/dL 12/23/2024 4:13 PM [facility] RDW 13.1 11.9 - 15.9 % 12/23/2024 4:13 PM [facility] LAB PLT 334 150 - 450 10*3/uL 12/23/2024 4:13 PM [facility] MEAN PLAT. VOLUME 7.9 6.8 - 10.2 fL 12/23/2024 4:13 PM MACHINE MAINTENANCE MECHANIC [facility][1] LAB NEUTROPHIL % 63.8 43.0 - 82.3 % 12/23/2024 4:13 PM MACHINE MAINTENANCE MECHANIC [facility][1] LAB LYMPHOCYTE % 27.4 14.5 - 45.2 % 12/23/2024 4:13 PM MACHINE MAINTENANCE MECHANIC [facility][1] LAB MONOCYTE % 6.1 4.3 - 13.3 % 12/23/2024 4:13 PM MACHINE MAINTENANCE MECHANIC [facility][1] LAB EOSINOPHIL % 2.2 0.1 - 6.8 % 12/23/2024 4:13 PM MACHINE MAINTENANCE MECHANIC [facility][1] LAB BASOPHIL % 0.5 0.0 - 2.0 % 12/23/2024 4:13 PM MACHINE MAINTENANCE MECHANIC [facility][1] LAB NEUTROPHIL ABS CT 5.2 1.7 - 7.7 10*3/uL 12/23/2024 4:13 PM MACHINE MAINTENANCE MECHANIC [facility][1] LAB ABS. NEUTROPHIL CT. 5,237.98 1,700 - 7,700 /uL 12/23/2024 4:13 PM MACHINE MAINTENANCE MECHANIC [facility][1] LAB ABSOLUTE LYMPHOCYTE COUNT 2.2 0.6 - 3.4 10*3/uL 12/23/2024 4:13 PM MACHINE MAINTENANCE MECHANIC [facility][1] LAB ABSOLUTE MONOCYTE COUNT 0.5 0.3 - 1.0 10*3/uL 12/23/2024 4:13 PM MACHINE MAINTENANCE MECHANIC [facility][1] LAB ABSOLUTE EOSINOPHIL COUNT 0.2 0.0 - 0.5 10*3/uL 12/23/2024 4:13 PM MACHINE MAINTENANCE MECHANIC [facility][1] LAB ABSOLUTE BASOPHIL COUNT 0.0 0.0 - 0.2 10*3/uL 12/23/2024 4:13 PM MACHINE MAINTENANCE MECHANIC [facility][1] LAB BKR-Blood Venipuncture / Unknown 12/23/2024 3:41 PM MACHINE MAINTENANCE MECHANIC 12/23/2024 3:47 PM MACHINE MAINTENANCE MECHANIC us Gardenia Joel NP LAB BLOOD ORDERABLES Final Re sult [facility] [address] [place] [place], [place] [address] [phone] * Magnesium (12/23/2024 3:41 PM MACHINE MAINTENANCE MECHANIC) MAGNESIUM 1.9 1.6 - 2.6 mg/dL 12/23/2024 4:12 PM MACHINE MAINTENANCE MECHANIC [facility][1] LAB BKR-Blood Venipuncture / Unknown 12/23/2024 3:41 PM MACHINE MAINTENANCE MECHANIC 12/23/2024 3:48 PM MACHINE MAINTENANCE MECHANIC Gardenia Joel NP LAB BLOOD ORDERABLES Final Re sult [facility] [address] [facility], [place] [address], [facility] [phone] * (ABNORMAL) Comprehensive Metabolic Panel (12/23/2024 3:41 PM MACHINE MAINTENANCE MECHANIC) SODIUM 140 133 - 144 mEq/L 12/23/2024 4:12 PM [facility] POTASSIUM 3.9 3.5 - 5.2 mEq/L 12/23/2024 4:12 PM [facility] CHLORIDE 107 98 - 107 mEq/L 12/23/2024 4:12 PM [facility] GLUCOSE 102(H) 70 - 99 mg/dL 12/23/2024 4:12 PM [facility] CREATININE 0.9 0.6 - 1.2 mg/dL 12/23/2024 4:12 PM [facility] CALCIUM 8.9 8.6 - 10.3 mg/dL 12/23/2024 4:12 PM [facility] PROTEIN 7.5 6.4 - 8.9 g/dL 12/23/2024 4:12 PM [facility] ALBUMIN 4.1 3.5 - 5.7 g/dL 12/23/2024 4:12 PM [facility] Total Bilirubin 0.4 0.3 - 1.0 mg/dL 12/23/2024 4:12 PM [facility] ALK PHOS 55 34 - 104 U/L 12/23/2024 4:12 PM [facility] AST (SGOT) 13 13 - 39 U/L 12/23/2024 4:12 PM [facility] CARBON DIOXIDE 26.6 21.0 - 31.0 mEq/L 12/23/2024 4:12 PM [facility] ALT (SGPT) 14 7 - 52 U/L 12/23/2024 4:12 PM [facility] ANION GAP 6.4 6.0 - 15.0 mEq/L 12/23/2024 4:12 PM [facility] BUN 6(L) 7 - 25 mg/dL 12/23/2024 4:12 PM [facility] EGFR >60 >=60 mL/min/1.7 3m2 12/23/2024 4:12 PM [facility] BKR-Blood Venipuncture / Unknown 12/23/2024 3:41 PM MACHINE MAINTENANCE MECHANIC 12/23/2024 3:48 PM MACHINE MAINTENANCE MECHANIC [facility] - 12/23/2024 4:12 PM MACHINE MAINTENANCE MECHANIC This estimate should be used for screening purposes only. A creatinine clearance should be obtained for use adjusting medication dosages or when choosing potentially nephrotoxic medications. Reported eGFR is being calculated using the CKD-EPI 2020, using only creatinine equation that does not use a race coefficient, and results are in mL/min/1.73m2. Gardenia Joel NP LAB BLOOD ORDERABLES Final Re sult Performing Organization Address [facility]/State/[facility] Co de Phone Number [facility] [address] [phone] from Last 3 Months Insurance Care Teams Front End Manager Relationship Specialty Start Date End Date Gail García NP [address] [place] [id number] PCP - General Family Medicine 07/29/24
[2025-01-30] MEDS: SODIUM CHLORIDE 0.9% IV 1,000 ML 999 ML IV CONT (16:54)
[2025-01-30 16:56] VITALS: BP 119/83; PULSE 77; RESP 18; O2SAT 98
[2025-01-30 17:02] LABS: Influenza A QL RT-PCR Negative (Negative); Influenza B QL RT-PCR Negative (Negative); RSV RNA, RT-PCR Negative (Negative); SARS-CoV-2 RNA PCR Negative (Negative)
[2025-01-30 17:03] LABS: Hematocrit 40.4 % (37.0-47.0); Hemoglobin 13.6 g/dL (12.0-15.0); Immature Granulocyte Percent A 0.4 % (0-0.5); Lymphocytes Absolute Auto 2.40 K/mm3 (0.9-3.2); Mean Corpuscular HGB Conc 33.7 g/dl (32-36); Mean Corpuscular Hemoglobin 29.1 pg (26-34); Mean Corpuscular Volume 86.5 fl (80-100); Nucleated Red Blood Cells Absolute Auto 0.000 K/mm3 (0.0-0.012); Nucleated Red Blood Cells Perc 0.0 % (0.0-0.2); Platelet Count Result 293 k/mm3 (150-375); Red Blood Count 4.67 M/mm3 (4.2-5.4); White Blood Count 10.7 K/mm3 (4.5-10.0)
[2025-01-30 17:13] LABS: Alanine Aminotransferase 23 U/L (6-35); Albumin Level 4.1 g/dL (3.5-5.1); Alkaline Phosphatase 86 U/L (38-126); Anion Gap 8 mmol/L (4-12); Aspartate Amino Transferase 23 U/L (14-36); Bilirubin,Total 0.5 mg/dL (0.2-1.3); Blood Urea Nitrogen 5 mg/dL (7-17); Calcium 9.3 mg/dL (8.4-10.2); Carbon Dioxide 23 mmol/L (22-30); Chloride 104 mmol/L (98-107); Estimated CRCL calculation 141 ml/min; Estimated Glomerular Filt Rate > 60; Glucose 83 mg/dL (65-110); Potassium 3.6 mmol/L (3.4-5.0); Sodium 135 mmol/L (137-145); Total Protein 7.6 g/dL (6.3-8.2)
[2025-01-30 17:22] LABS: Add Urine Microscopic? YES; Appearance Urine Cloudy (Clear); Glucose Urine UA Negative (Negative); Leukocyte Esterase Ur 1+ LEU/UL (Negative); Need Manual Microscopic Reviewed; Nitrate Urine Negative (Negative); Specific Grav Ur 1.025 (1.001-1.035)
[2025-01-30] MEDS: CEPHALEXIN 500 MG CAPSULE PO (18:09)
[2025-01-30 18:15] VITALS: BP 125/71; PULSE 76; RESP 18; TEMP 36.8; O2SAT 100
== END 2025-01-30 18:16 | disposition home or self-care (01) ==
PROVIDERS: Emergency Provider Student in an Organized Health Care Education/Training Program
DX: O21.9 Vomiting of pregnancy, unspecified (principal); O26.891 Other specified pregnancy related conditions, first trimester; R82.71 Bacteriuria; Z20.822 Contact with and (suspected) exposure to COVID-19; Z3A.10 10 weeks gestation of pregnancy
CPT/HCPCS: 36415; 80053; 81001; 85025; 87086; 87637; 96360; 99283; A9270; J7030